=== PATIENT | male | born 2000 ===

== ENCOUNTER 2023-04-19 10:37 | Emergency (ER) | payer OTHER ==
[~2023-04-19] VITALS: Ht 175.3 cm; Wt 86.0 kg
[2023-04-19 10:49] VITALS: TEMP 98.3
[2023-04-19 10:52] LABS: COVID AG,FIA SOURCE NASAL SWAB
[2023-04-19 11:25] LABS: SARS-COV2 (COVID) ANTIGEN,FIA Negative (Negative)
[2023-04-19 11:26] LABS: INFLUENZA TYPE A NEGATIVE FOR TYPE A (NEGATIVE); INFLUENZA TYPE B NEGATIVE FOR TYPE B (NEGATIVE)
[2023-04-19] MEDS ORDERED: IPRATROPIUM BROMIDE 0.5 MG/2.5 ML NEB SOLUTION NEB ONE (12:30)
[2023-04-19] MEDS ORDERED: CEPHALEXIN MONOHYDRATE 500 MG CAPSULE PO ONE (12:30)
[2023-04-19] MEDS ORDERED: GuaiFENesin/D-METHORPHAN [SUGAR-FREE] 200-20MG/10 ML SYRUP UDCUP PO ONE (12:30)
[2023-04-19] MEDS ORDERED: ALBUTEROL SULFATE 2.5 MG/0.5 ML NEB SOLUTION NEB ONE (12:30)
[2023-04-19] MEDS ORDERED: PredniSONE 20 MG TABLET PO ONE (12:30)
[2023-04-19] MEDS ORDERED: ALBU18HF12 IH (13:15)
[2023-04-19] MEDS ORDERED: GUAIFDM PO (13:15)
[2023-04-19] MEDS ORDERED: PRED-554 PO (13:15)
[2023-04-19] MEDS ORDERED: DOXY-354 PO (13:15)
[2023-04-19 13:30] VITALS: BP 135/85; PULSE 99; RESP 16
== END 2023-04-19 13:39 | disposition home or self-care (01) ==
LOC: EMS 10:40
DX: J45.901 Unspecified asthma with (acute) exacerbation (principal); J06.9 Acute upper respiratory infection, unspecified; J98.4 Other disorders of lung; F17.210 Nicotine dependence, cigarettes, uncomplicated; F12.90 Cannabis use, unspecified, uncomplicated; Z20.822 Contact with and (suspected) exposure to COVID-19; Z88.0 Allergy status to penicillin
CPT/HCPCS: 99284; 87426; 99406; 87804; 94640; J7512